=== PATIENT | male | born 1950 | race Caucasian/White ===

== ENCOUNTER 2020-06-19 12:01 | Outpatient (CLI) | payer MEDICARE, SELFPAY ==
--- NOTE | 2020-06-19 12:59 | ECG_ITS ---
Measurements Intervals [place] Rate: 64 P: 9 LA: 196 QRS: -19 QRSD: 102 T: -6 QT: 372 QTc: 385 Interpretive Statements SINUS RHYTHM POOR R WAVE PROGRESSION, ANTERIOR LEADS INFERIOR INFARCT, AGE INDETERMINATE BASELINE ARTIFACT- I, II, III, AVR, AVL, AVF ABNORMAL ECG Electronically Signed On 06-19-2020 13:31:31 GRIPPER ATTACHER by Timbo Waterman D.O.
[2020-06-19 13:26] LABS: Basophils Percent Auto 0.6 % (0.2-1.2); Eosinophils Absolute Auto 0.1 K/mm3 (0-0.3); Eosinophils Percent Auto 2.3 % (0-4.4); Hematocrit 46.6 % (42.0-52.0); Hemoglobin 16.4 g/dL (14.0-18.0); Immature Granulocyte Absolute 0.01 K/mm3 (0.00-0.031); Immature Granulocyte Percent A 0.2 % (0-0.5); Lymphocytes Absolute Auto 0.89 K/mm3 (0.9-3.2); Lymphocytes Percent Auto 17.1 % (18.3-44.2); Mean Corpuscular HGB Conc 35.2 g/dl (32-36); Mean Corpuscular Hemoglobin 31.3 pg (26-34); Mean Corpuscular Volume 88.9 fl (80-100); Mean Platelet Volume 9.3 fl (7.4-10.4); Monocytes Absolute Auto 0.5 K/mm3 (0.1-0.6); Monocytes Percent Auto 9.4 % (2.6-8.5); Neutrophils Absolute Auto 3.7 K/mm3 (1.3-6.7); Neutrophils Percent Auto 70.4 % (45.5-73.1); Platelet Count Result 250 k/mm3 (150-375); Red Blood Count 5.24 M/mm3 (4.6-6.20); Red Cell Distribution Width 13.2 % (11.5-14.5); White Blood Count 5.2 K/mm3 (4.5-10.0)
[2020-06-19 13:35] LABS: Anion Gap 10 mmol/L (8-16); Blood Urea Nitrogen 19 mg/dL (9-20); Calcium 9.7 mg/dL (8.4-10.2); Carbon Dioxide 29 mmol/L (22-30); Chloride 100 mmol/L (98-107); Estimated Glomerular Filt Rate > 60; Glucose 120 mg/dL (75-110); Potassium 3.2 mmol/L (3.4-5.0); Sodium 139 mmol/L (137-145)
== END 2020-06-19 12:02 | disposition home or self-care (01) ==
PROVIDERS: Anesthesiology; PCP Nurse Practitioner; Visit Provider Orthopaedic Surgery
DX: M17.11 Unilateral primary osteoarthritis, right knee (principal); I10 Essential (primary) hypertension; Z01.818 Encounter for other preprocedural examination; R94.31 Abnormal electrocardiogram [ECG] [EKG]
CPT/HCPCS: 36415; 80048; 85025; 93005

== ENCOUNTER 2020-06-24 01:11 | Outpatient (CLI) | payer MEDICARE, SELFPAY ==
[2020-06-24 18:31] LABS: SARS-CoV-2 RNA PCR Negative
== END 2020-06-24 01:12 | disposition home or self-care (01) ==
LOC: ANHCOVIDDT 01:11
PROVIDERS: Visit Provider Orthopaedic Surgery
DX: Z01.812 Encounter for preprocedural laboratory examination (principal); Z20.828 Contact with and (suspected) exposure to other viral communicable diseases
CPT/HCPCS: 87635; C9803; U0003

== ENCOUNTER 2020-06-27 01:09 | Day surgery (SDC) | payer MEDICARE, SELFPAY ==
[2020-06-19 12:55] VITALS: BP 154/85; PULSE 82; RESP 16; TEMP 37.1; O2SAT 98; BMI 31.6
[2020-06-27] VITALS (8 sets, daily range): BP systolic 136–178; BP diastolic 65–77; PULSE 68–86; RESP 12–20; TEMP 36.5–36.6; O2SAT 94–97
--- NOTE | ~2020-06-27 | XR_ITS ---
EXAMINATION: XR knee RT 2V DATE: 06/27/2020 10:48 [employer]ER AND POLISHER INDICATION: Right partial knee arthroplasty TECHNIQUE: 2 views right knee FINDINGS: There is a right medial unicompartmental knee arthroplasty in expected position. Subcutane ous gas with fluid and air in the joint are consistent with recent surgery. No evidence of periprosth etic fracture. IMPRESSION: 1. Recent right medial unicompartmental knee arthroplasty. Reviewed, dictated and finalized at location B. KER [employer] POLISHER
--- NOTE | 2020-06-27 06:40 | WPDANESEPPF ---
Anes - Initial Pre Proc Eval Procedure: Operation Date: 06/27/20 07:30 Proposed Procedures p Right Partial Knee Arthroplasty - Dale Richards MD Date/Time: 06/27/20 06:40 Surgeon: Dale Richards MD Pre Op Diagnosis: Primary OA of Right Knee Patient Data Age: 70 Gender: M Height: 6 ft Weight: 106 kg Last Vital Signs Temp 36.6 C 06/27/20 06:25 Pulse 68 06/27/20 06:25 Resp 14 06/27/20 06:25 BP 178/71 H 06/27/20 06:25 Pulse Ox 97 06/27/20 06:25 Allergies Allergy/AdvReac Type Severity Reaction Status Date / Time No Known Allergies Allergy Unverified 06/27/20 06:27 Home Medications Medication Instructions Recorded Confirmed Type amlodipine 10 mg PO QPM 06/19/20 06/27/20 History aspirin 81 mg PO DAILY 06/19/20 06/27/20 History celecoxib 100 mg PO QAM 06/19/20 06/27/20 History cholecalciferol (vitamin D3) 50 mcg PO DAILY 06/19/20 06/27/20 History fluticasone propionate 2 spray INTRANASAL DAILY 06/19/20 06/27/20 History hydrochlorothiazide 25 mg PO DAILY 06/19/20 06/27/20 History omeprazole 40 mg PO QPM 06/19/20 06/27/20 History simvastatin 20 mg PO QPM 06/19/20 06/27/20 History Patient hx anesthesia problems: none Family hx anesthesia problems: none PMFSH Past Medical History Medical History (Updated 06/27/20 @ 06:40 by Huber Marte MD) GERD (gastroesophageal reflux disease) HTN (hypertension) Hyperlipidemia NHL (non-Hodgkin's lymphoma) Obesity Surgical History Surgical History (Updated 06/27/20 @ 06:45 by Huber Marte MD) H/O umbilical hernia repair History of shoulder surgery History of total knee arthroplasty Social History Social History Smoking packs per day: 2 Smoking cigarettes per day: 40.0 Years smoked: 18 Smoking pack-years: 36.00 Smoking status: Former smoker Tobacco type: cigarettes Smoking end date: 07/28/84 Alcohol intake: current Drinks per week: 2 Living arrangements: with family Spiritual care concerns: No Anes - Eval Final PreProcedure Day of Procedure 06/27/20 06:40 Patient weight: obese Heart: regular rate and rhythm Lungs: clear to auscultation Airway: Mallampati scale class II Neurological: alert and oriented Last oral intake: >/= 8 hours ASA classification: III Emergent: no Anesthetic plan: proceed Anesthesia type and monitoring: general LMA and standard monitoring Informed Consent: The patient's anesthetic plan and its attendant risks and benefits were discussed with the patient/family/POA. Questions were solicited and answers provided to the satisfaction of the patient/family/POA.
[2020-06-27] MEDS: ACETAMINOPHEN 500 MG TABLET 1000 MG PO (06:58)
[2020-06-27] MEDS: TRANEXAMIC ACID 1,000MG/ISO100 1,000 MG/100 ML BAG 200 MG IVPB (07:08)
[2020-06-27] MEDS: LACTATED RINGERS 1,000 ML 30 ML IV CONT ×2 (07:09→09:33)
--- NOTE | 2020-06-27 07:20 | WPDHPUPDATE1 ---
History and Physical Update Update Date/Time: 06/27/20 07:20 History and Physical has been reviewed, including an updated exam of the patient. There are NO changes in the patient's condition. Risks, benefits, and alternatives have been discussed and questions answered. Patient agrees to proceed with procedure.
[2020-06-27] MEDS: ceFAZolin 2 GM/D5W 50 ML 2 GM/50 ML BAG IVPB (07:27)
--- NOTE | 2020-06-27 09:42 | P.OP_ITS ---
Procedure Note - Detailed Date of procedure: 06/27/20 Pre-op diagnosis: Primary OA of Right Knee Post-op diagnosis: same Procedure performed: Partial knee arthroplasty, medial compartment. Implants: [employer] PKR X3 system tibial insert size #4, 8 mm thickness, femoral component size 4. Tibial base tibial base plate size 4. Anesthesia: GETA and regional (subsartorial block.) Surgeon: Dale Richards MD Winder Fixer: Deysi Recinos PA-C Estimated blood loss (mL): 50 Drains: No Complications: None Findings: * Physician assistant head cashier required during surgery; including patient positioning, draping, tissue retraction, maintaining instrument position, cement removal, wound closure, and dressing placement. Operative details: The patient was given a general anesthetic. Preoperative antibiotics were given. The knee was prepped and draped in the usual sterile fashion. A longitudinal incision was created along the medial aspect of the patellar tendon. A minimally invasive optimized mid vastus approach was completed. No medial release was taken. The external alignment guide was used to cut the tibia with anatomic posterior slope. A 4 millimeter resection was taken. The spacer block technique was utilized to measure flexion and extension gaps after the osteophytes were removed. The difference was used to calculate the distal resection. The distal cutting block was utilized to cut the distal femur. The AP and chamfer block was utilized for this last cuts. The femur and tibia were sized. Range of motion and gap balancing was assessed. This was tested with the 1.5 millimeter spacer. The bony surfaces were cleaned with lavaged. Lug holes were drilled. The real components were cemented into position. Excess cement was carefully removed. The tourniquet was released. Meticulous hemostasis was maintained. The wound was closed with interrupted 1 Vicryl suture followed by a running 0 Quill suture and 2-0 Quill suture. Steri- Strips are placed in the skin the patient was extubated and brought to recovery room in stable condition. There were no complications.
[2020-06-27] MEDS: oxyCODONE HCL (*CRX) 5 MG TAB IR PO (11:27)
== END 2020-06-27 11:59 | disposition home or self-care (01) ==
PROVIDERS: Visit Provider Orthopaedic Surgery
PROC: (CPT 27446; principal; 2020-06-27 07:30)
DX: M17.11 Unilateral primary osteoarthritis, right knee (principal); I10 Essential (primary) hypertension; E78.5 Hyperlipidemia, unspecified; K21.9 Gastro-esophageal reflux disease without esophagitis; Z79.82 Long term (current) use of aspirin; Z85.72 Personal history of non-Hodgkin lymphomas; E66.9 Obesity, unspecified; Z68.31 Body mass index [BMI] 31.0-31.9, adult; Z87.891 Personal history of nicotine dependence
CPT/HCPCS: 27446; 36415; 73560; 80048; 85025; 93005; 97110; 97161; A9270; C1713; C1776; J0171; J0690; J1170; J1885; J2270; J2405; J2704; J2795; J3010; J7120